=== PATIENT | male | born 1960 | race Caucasian/White ===

== ENCOUNTER 2016-11-21 18:10 | Emergency (ER) | payer SELFPAY ==
[2016-11-21 18:20] VITALS: BP 140/74
== END 2016-11-21 19:21 | disposition home or self-care (01) ==
LOC: ED 18:10
DX: T15.01XA Foreign body in cornea, right eye, initial encounter (principal); H20.9 Unspecified iridocyclitis; X58.XXXA Exposure to other specified factors, initial encounter; Y93.89 Activity, other specified; Y92.89 Other specified places as the place of occurrence of the external cause; Y99.8 Other external cause status

== ENCOUNTER 2019-09-21 10:56 | Emergency (ER) | payer BC ==
[~2019-09-21] VITALS: Ht 175.3 cm; Wt 89.4 kg
[2019-09-21 11:01] VITALS: BP 151/80; Ht 175.3 cm; Wt 89.4 kg
== END 2019-09-21 11:26 | disposition home or self-care (01) ==
LOC: ED 10:56
DX: R50.9 Fever, unspecified (principal)
CPT/HCPCS: 82962